=== PATIENT | male | born 1980 | race Caucasian/White ===

== ENCOUNTER 2023-07-17 15:49 | Emergency (ER) | payer OTHER ==
[~2023-07-17] VITALS: Ht 167.6 cm; Wt 69.8 kg
[2023-07-17] MEDS ORDERED: ADULT GLYCERIN1 EACH PR (16:20)
[2023-07-17] MEDS ORDERED: KRISTALOSE20 GM PO (16:20)
[2023-07-17 16:43] VITALS: BP 137/98
== END 2023-07-17 16:40 | disposition home or self-care (01) ==
LOC: ED 15:49
DX: K59.00 Constipation, unspecified (principal); Z88.0 Allergy status to penicillin
CPT/HCPCS: 99283